=== PATIENT | male | born 1975 | race Caucasian/White ===

== ENCOUNTER 2020-07-27 14:06 | Emergency (ER) | payer MEDICAID ==
[2020-07-27] MEDS ORDERED: Albuterol 0.083% 2.5 MG/3 ML Neb Soln NEB ONE (14:58)
[2020-07-27] MEDS ORDERED: Diphtheria,Pertussis(Acell),Tetanus Vaccine 0.5 ML Syringe IM ONE (15:45)
[2020-07-27] MEDS ORDERED: Diphtheria/Tetanus Toxoids,Adult (Td) 0.5 ML Syringe ONE (16:06)
[2020-07-27] MEDS ORDERED: Diphtheria,Pertussis(Acell),Tetanus Vaccine 0.5 ML Syringe ONE (16:07)
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
--- NOTE | 2020-07-28 06:43 | CR ---
Chest: 2 views of the chest were obtained. Comparison: No previous chest imaging is available. Symmetric nodules are seen within both lower lungs which appear symmetric between right and left sides. Findings are most likely due to nipple densities. Lungs otherwise are clear. No acute parenchymal change is seen. Heart size and mediastinum are normal. No acute osseous abnormality is appreciated. Impression: 1. Probable nipple densities. 2. Nothing acute is otherwise seen on 2 view chest x-ray. Diagnostic code #2
== END 2020-07-27 16:25 | disposition home or self-care (01) ==
LOC: JD.ED 14:06
DX: J45.909 Unspecified asthma, uncomplicated (principal); E78.00 Pure hypercholesterolemia, unspecified; I10 Essential (primary) hypertension; K21.9 Gastro-esophageal reflux disease without esophagitis; E11.9 Type 2 diabetes mellitus without complications; E03.9 Hypothyroidism, unspecified; G40.909 Epilepsy, unspecified, not intractable, without status epilepticus; Z23 Encounter for immunization; Z88.1 Allergy status to other antibiotic agents; Z88.8 Allergy status to other drugs, medicaments and biological substances; Z79.4 Long term (current) use of insulin; Z79.899 Other long term (current) drug therapy; Z87.891 Personal history of nicotine dependence
CPT/HCPCS: 71046; 71046-26; 90471; 90715; 94640; 99283; 99285-25

== ENCOUNTER 2020-08-11 17:03 | Emergency (ER) | payer MEDICAID ==
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
--- NOTE | 2020-08-11 18:31 | CR ---
Right shoulder: 3 views of the right shoulder were obtained. Comparison: No prior study is available. Acromioclavicular and glenohumeral joints appear within normal limits. No acute fracture, dislocation or other bony abnormality is appreciated. No abnormal soft tissue calcifications are seen. Impression: 1. No abnormality is appreciated on right shoulder study. Diagnostic code #1
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
== END 2020-08-11 18:49 | disposition home or self-care (01) ==
LOC: JD.ED 17:03
DX: M75.52 Bursitis of left shoulder (principal); M75.51 Bursitis of right shoulder; E78.00 Pure hypercholesterolemia, unspecified; I10 Essential (primary) hypertension; K21.9 Gastro-esophageal reflux disease without esophagitis; E11.9 Type 2 diabetes mellitus without complications; E03.9 Hypothyroidism, unspecified; Z86.16 Personal history of COVID-19; Z88.1 Allergy status to other antibiotic agents; Z88.8 Allergy status to other drugs, medicaments and biological substances
CPT/HCPCS: 73030-26-LT; 73030-26-RT; 73030-LT; 73030-RT; 99283

== ENCOUNTER 2020-08-15 16:52 | Emergency (ER) | payer MEDICAID ==
--- NOTE | 2020-08-15 17:35 | EDM.PDOC ---
ED HPI GENERAL MEDICAL PROBLEM - General Chief Complaint: Upper Extremity Injury/Pain Stated Complaint: SHOULDER PAIN Time Seen by Provider: 08/15/20 17:09 Source of Information: Reports: Patient History Limitations: Reports: No Limitations - History of Present Illness INITIAL COMMENTS - FREE TEXT/NARRATIVE: 45-year-old male presents to the emergency department today with complaints of bilateral shoulder pain requesting refill of his narcotic pain medication. The patient was prescribed 20 Percocet 2 days ago and was instructed to take 1 medication at bedtime as needed. He states today that he is out of his medications and that he has chronic pain to his bilateral shoulders. Patient denies any history of fever, chills, nausea, vomiting or diarrhea. He denies cough or shortness of breath. Left Shoulder Pain Score (Numeric/FACES): 5 - Related Data Allergies Allergy/AdvReac Type Severity Reaction Status Date / Time varenicline [From Chantix] Allergy Other Verified 08/15/20 17:11 sulfamethoxazole AdvReac Sweating Verified 08/15/20 17:11 [From Bactrim] trimethoprim [From Bactrim] AdvReac Sweating Verified 08/15/20 17:11 Home Meds: Home Meds Albuterol Sulfate [Albuterol Sulfate HFA] 8.5 gm INH Q2H PRN #1 inhaler 07/27/20 [Rx] Citalopram Hydrobromide [Celexa] 20 mg PO DAILY 07/27/20 [History] Codeine/Promethazine [Phenergan with Codeine] 5 ml PO ASDIRECTED 07/27/20 [History] Cyclobenzaprine [Flexeril] 5 mg PO TID PRN 07/27/20 [History] Dicyclomine [Bentyl] 20 mg PO DAILY 07/27/20 [History] Insulin Aspart [NovoLOG] 18 units SUBCUT TID 07/27/20 [History] Insulin Glargine,Hum.Rec.Anlog [Lantus Solostar] 51 unit SQ BEDTIME 07/27/20 [History] Levothyroxine Sodium [Levothyroxine] 300 mcg PO DAILY 07/27/20 [History] Metoclopramide HCl [Reglan] 10 mg PO DAILY 07/27/20 [History] Omeprazole 40 mg PO DAILY 07/27/20 [History] Pregabalin [Lyrica] 200 mg PO DAILY 07/27/20 [History] Rosuvastatin [Crestor] 10 mg PO DAILY 07/27/20 [History] Topiramate [Topamax] 200 mg PO DAILY 07/27/20 [History] cloNIDine [Catapres] 0.1 mg PO DAILY 07/27/20 [History] metFORMIN [Glucophage] 1,000 mg PO BIDMEALS 07/27/20 [History] ondansetron HCL [Zofran] 4 mg SL TID PRN 07/27/20 [History] predniSONE [Prednisone] 20 mg PO DAILY #5 tablet 07/27/20 [Rx] Ondansetron [Zofran] 4 mg BUCCAL Q6H PRN #12 tab 08/11/20 [Rx] oxyCODONE HCl/Acetaminophen [Percocet 5-325 mg Tablet] 1 - 2 each PO Q4H PRN #20 tablet 08/11/20 [Rx] Past Medical History HEENT History: Reports: None Cardiovascular History: Reports: High Cholesterol, Hypertension Respiratory History: Reports: Asthma, Bronchitis, Recurrent Gastrointestinal History: Reports: GERD Genitourinary History: Reports: Renal Calculus Musculoskeletal History: Reports: Other (See Below) Other Musculoskeletal History: chronic shoulder pain 5 shoulder surgeries Neurological History: Reports: Seizure Other Neuro History: states has epilepsy 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 Psychiatric History: Reports: Anxiety, Depression Endocrine/Metabolic History: Reports: Diabetes, Type II, Hypothyroidism Hematologic History: Reports: None Immunologic History: Reports: None Oncologic (Cancer) History: Reports: None Dermatologic History: Reports: None - Infectious Disease History Infectious Disease History: Reports: Chicken Pox, Novel Coronavirus Other Infectious Disease History: Feb 2020 - Past Surgical History Head Surgeries/Procedures: Reports: None HEENT Surgical History: Reports: Oral Surgery GI Surgical History: Reports: Appendectomy, Cholecystectomy Musculoskeletal Surgical History: Reports: Shoulder Surgery Social & Family History - Family History Family Medical History: No Pertinent Family History - Tobacco Use Tobacco Use Status *Q: Former Tobacco User Used Tobacco, but Quit: Yes Month/Year Tobacco Last Used: 1 year ago - Caffeine Use Caffeine Use: Reports: Coffee, Soda, Tea - Recreational Drug Use Recreational Drug Use: No - Living Situation & Occupation Living situation: Reports: Occupation: Unemployed Review of Systems - Review of Systems Review Of Systems: Comprehensive ROS is negative, except as noted in HPI. ED EXAM, GENERAL - Physical Exam Exam: See Below Exam Limited By: No Limitations General Appearance: Alert, WD/WN, No Apparent Distress Ears: Normal External Exam, Hearing Grossly Normal Nose: Normal Inspection Throat/Mouth: Normal Inspection, Normal Lips, Normal Voice, No Airway Compromise Head: Atraumatic Neck: Normal Inspection, Supple Respiratory/Chest: No Respiratory Distress, No Accessory Muscle Use Cardiovascular: Normal Peripheral Pulses, Regular Rate, Rhythm GI/Abdominal: No Distention (Male) Exam: Deferred Rectal (Males) Exam: Deferred Back Exam: Normal Inspection Extremities: Normal Inspection, Normal Range of Motion, Non-Tender, Normal Capillary Refill Neurological: Alert, Oriented, Normal Cognition Psychiatric: Normal Affect, Normal Mood Skin Exam: Warm, Dry, Intact, Normal Color, No Rash Lymphatic: No Adenopathy Course - Vital Signs Text/Narrative:: Patient presents with drug-seeking type behavior. Was prescribed Percocet 20 tabs 2 days ago and instructed to take 1 at bedtime as needed for discomfort however he states that he has used all these up in 2 days. I will not refill his prescription for Percocet. I did have a discussion with him regarding the fact that he has misused these meds and not taking them as prescribed and that the ER is not the appropriate location to manage his chronic pain. He has been in town for quite some time now and the last time I did see him I recommended he find a primary care physician to manage his pain and he was given a list of our local providers. He has not done this. I will not refill his narcotic pain medication today. Last Recorded V/S: Last Vital Signs Temp 97.1 F 08/15/20 17:08 Pulse 68 08/15/20 17:08 Resp 16 08/15/20 17:08 BP 148/93 H 08/15/20 17:08 Pulse Ox 98 08/15/20 17:08 Departure - Departure Time of Disposition: 17:32 Disposition: Home, Self-Care 01 Condition: Good Clinical Impression: Drug-seeking behavior Shoulder pain, bilateral Qualifiers: Chronicity: chronic Qualified Code(s): M25.511 - Pain in right shoulder - Discharge Information Instructions: Shoulder Pain, [id number] Referrals: PCP,None [Primary Care Provider] - Forms: ED Department Discharge Additional Instructions: You were seen in the ED today with complaints of bilateral shoulder pain. You were given a prescription for 20 percocet 4 days ago and advised to only take one or two at bedtime. We do not manage chronic pain in the emergency department. You will need to follow up with your primary care physician to manage your pain. Sepsis Event Note (ED) - Evaluation Sepsis Screening Result: No Definite Risk
== END 2020-08-15 18:03 | disposition home or self-care (01) ==
LOC: JD.ED 16:52
DX: M25.511 Pain in right shoulder (principal); M25.512 Pain in left shoulder; E78.00 Pure hypercholesterolemia, unspecified; I10 Essential (primary) hypertension; K21.9 Gastro-esophageal reflux disease without esophagitis; E11.9 Type 2 diabetes mellitus without complications; E03.9 Hypothyroidism, unspecified; Z86.16 Personal history of COVID-19; Z79.4 Long term (current) use of insulin; Z79.899 Other long term (current) drug therapy; Z88.8 Allergy status to other drugs, medicaments and biological substances; Z88.1 Allergy status to other antibiotic agents; Z76.5 Malingerer [conscious simulation]; Z87.891 Personal history of nicotine dependence
CPT/HCPCS: 99283

== ENCOUNTER 2020-09-15 12:12 | Emergency (ER) | payer MEDICAID ==
--- NOTE | 2020-09-15 15:15 | EDM.PDOC ---
ED HPI GENERAL MEDICAL PROBLEM - General Chief Complaint: Upper Extremity Injury/Pain Stated Complaint: SWOLLEN RT HAND Time Seen by Provider: 09/15/20 13:29 Source of Information: Reports: Patient History Limitations: Reports: No Limitations - History of Present Illness INITIAL COMMENTS - FREE TEXT/NARRATIVE: Patient is a 45-year-old male presenting to the emergency department with complaints of pain and swelling to his right hand. He reports 1 week ago he did fall and caught himself using his hands, so is unsure if he may have injured it then. He has been using Tylenol and ibuprofen as needed for discomfort. He has been working with diabetic education to get his insulin stabilized and also has a appointment with Neetu Boswell NP to establish care. Right Hand Pain Score (Numeric/FACES): 8 - Related Data Allergies Allergy/AdvReac Type Severity Reaction Status Date / Time varenicline [From Chantix] Allergy Other Verified 08/15/20 17:11 sulfamethoxazole AdvReac Sweating Verified 08/15/20 17:11 [From Bactrim] trimethoprim [From Bactrim] AdvReac Sweating Verified 08/15/20 17:11 Home Meds: Home Meds Albuterol Sulfate [Albuterol Sulfate HFA] 8.5 gm INH Q2H PRN #1 inhaler 07/27/20 [Rx] Citalopram Hydrobromide [Celexa] 20 mg PO DAILY 07/27/20 [History] Codeine/Promethazine [Phenergan with Codeine] 5 ml PO ASDIRECTED 07/27/20 [History] Cyclobenzaprine [Flexeril] 5 mg PO TID PRN 07/27/20 [History] Dicyclomine [Bentyl] 20 mg PO DAILY 07/27/20 [History] Insulin Aspart [NovoLOG] 18 units SUBCUT TID 07/27/20 [History] Insulin Glargine,Hum.Rec.Anlog [Lantus Solostar] 51 unit SQ BEDTIME 07/27/20 [History] Levothyroxine Sodium [Levothyroxine] 300 mcg PO DAILY 07/27/20 [History] Metoclopramide HCl [Reglan] 10 mg PO DAILY 07/27/20 [History] Omeprazole 40 mg PO DAILY 07/27/20 [History] Pregabalin [Lyrica] 200 mg PO DAILY 07/27/20 [History] Rosuvastatin [Crestor] 10 mg PO DAILY 07/27/20 [History] Topiramate [Topamax] 200 mg PO DAILY 07/27/20 [History] cloNIDine [Catapres] 0.1 mg PO DAILY 07/27/20 [History] metFORMIN [Glucophage] 1,000 mg PO BIDMEALS 07/27/20 [History] ondansetron HCL [Zofran] 4 mg SL TID PRN 07/27/20 [History] predniSONE [Prednisone] 20 mg PO DAILY #5 tablet 07/27/20 [Rx] Ondansetron [Zofran] 4 mg BUCCAL Q6H PRN #12 tab 08/11/20 [Rx] oxyCODONE HCl/Acetaminophen [Percocet 5-325 mg Tablet] 1 - 2 each PO Q4H PRN #20 tablet 08/11/20 [Rx] Naproxen [Naprosyn] 500 mg PO Q12HR 5 Days #10 tab 09/15/20 [Rx] Past Medical History HEENT History: Reports: None Cardiovascular History: Reports: High Cholesterol, Hypertension Respiratory History: Reports: Asthma, Bronchitis, Recurrent Gastrointestinal History: Reports: GERD Genitourinary History: Reports: Renal Calculus Musculoskeletal History: Reports: Other (See Below) Other Musculoskeletal History: chronic shoulder pain 5 shoulder surgeries Neurological History: Reports: Seizure Other Neuro History: states has epilepsy 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 Psychiatric History: Reports: Anxiety, Depression Endocrine/Metabolic History: Reports: Diabetes, Type II, Hypothyroidism Hematologic History: Reports: None Immunologic History: Reports: None Oncologic (Cancer) History: Reports: None Dermatologic History: Reports: None - Infectious Disease History Infectious Disease History: Reports: Chicken Pox, Novel Coronavirus Other Infectious Disease History: Feb 2020 - Past Surgical History Head Surgeries/Procedures: Reports: None HEENT Surgical History: Reports: Oral Surgery GI Surgical History: Reports: Appendectomy, Cholecystectomy Musculoskeletal Surgical History: Reports: Shoulder Surgery Social & Family History - Family History Family Medical History: No Pertinent Family History - Tobacco Use Tobacco Use Status *Q: Current Every Day Tobacco User Years of Tobacco use: 14 Packs/Tins Daily: 1 - Caffeine Use Caffeine Use: Reports: Coffee, Soda Other Caffeine Use: drinks diet mt dew - Recreational Drug Use Recreational Drug Use: Yes Recreational Drug Type: Reports: Marijuana/Hashish Other Recreational Drug Type: rital priscila - Living Situation & Occupation Living situation: Reports: Occupation: Unemployed Review of Systems - Review of Systems Review Of Systems: Comprehensive ROS is negative, except as noted in HPI. ED EXAM, GENERAL - Physical Exam Exam: See Below Exam Limited By: No Limitations General Appearance: Alert, WD/WN, No Apparent Distress Respiratory/Chest: No Respiratory Distress, Lungs Clear, Normal Breath Sounds, No Accessory Muscle Use, Chest Non-Tender Cardiovascular: Normal Peripheral Pulses, Regular Rate, Rhythm, No Edema, No Gallop, No JVD, No Murmur, No Rub Extremities: Other (Area minimal swelling to the right hand between the first and second fingers. No redness or warmth.) Neurological: Alert, Oriented, CN II-XII Intact, Normal Cognition, Normal Gait, Normal Reflexes, No Motor/Sensory Deficits Psychiatric: Normal Affect, Normal Mood Skin Exam: Warm, Dry, Intact, Normal Color, No Rash Course - Vital Signs Last Recorded V/S: Last Vital Signs Temp 96.9 F 09/15/20 12:20 Pulse 74 09/15/20 12:20 Resp 20 09/15/20 12:20 BP 145/94 H 09/15/20 12:20 Pulse Ox 95 09/15/20 12:20 - Orders/Labs/Meds Orders: Active Orders 24 hr Category Date Time Status Hand Comp Min 3V Rt [CR] Stat Exams 09/15/20 13:32 Taken DME for Discharge [COMM] Routine Oth 09/15/20 14:47 Ordered - Re-Assessments/Exams Free Text/Narrative Re-Assessment/Exam: 45-year-old male presenting to the emergency department with complaints of pain to his right hand. He does report that a week ago he fell on some stairs and caught himself on his hand. He is not sure if he may have injured it then. On exam, patient has some very minimal swelling between the first and second fingers. There is no redness or warmth. Area is mildly tender to palpation. I suspect he is strained his hand, however I have ordered a x-ray of the right hand. 09/15/20 15:13 X-ray of the right hand shows no acute abnormalities. Patient will be provided a thumb spica splint to immobilize the joints and allow for healing. I will start him on Naprosyn for discomfort. Recommend follow-up with his primary care as scheduled. Departure - Departure Time of Disposition: 15:14 Disposition: Home, Self-Care 01 Condition: Good Clinical Impression: Hand strain Qualifiers: Encounter type: initial encounter Laterality: right Qualified Code(s): S66.911A - Strain of unspecified muscle, fascia and tendon at wrist and hand level, right hand, initial encounter - Discharge Information Prescriptions: Naproxen [Naprosyn] 500 mg PO Q12HR 5 Days #10 tab Referrals: Rae Boswell NP [Primary Care Provider] - Forms: ED Department Discharge Additional Instructions: You were seen in the emergency department today for evaluation of pain and mild swelling to your right hand. X-rays are completed and found to be normal. As we discussed, you have likely strained your hand. You have been provided with a brace. Recommend wearing this for the next 4 to 5 days to allow healing. You have been provided Naprosyn. Take this medication as prescribed. If you find that it is upsetting her stomach, you may stop it and change to Tylenol. Follow-up with your primary care provider at your appointment as scheduled. Return to ER as needed. Sepsis Event Note (ED) - Evaluation Sepsis Screening Result: No Definite Risk - Focused Exam Vital Signs: Vital Signs Temp Pulse Resp BP Pulse Ox 09/15/20 12:20 96.9 F 74 20 145/94 H 95 - My Orders Last 24 Hours: My Active Orders 09/15/20 13:32 Hand Comp Min 3V Rt [CR] Stat 09/15/20 14:47 DME for Discharge [COMM] Routine - Assessment/Plan Last 24 Hours: My Active Orders 09/15/20 13:32 Hand Comp Min 3V Rt [CR] Stat 09/15/20 14:47 DME for Discharge [COMM] Routine
--- NOTE | 2020-09-15 16:08 | CR ---
Right hand: 4 views of the right hand were obtained. Comparison: No prior hand exam is available. Joint spaces are fairly well preserved. Small bone islands are noted within the navicular bone as well as within the distal proximal phalanx of the fourth finger. No acute fracture, dislocation or other bony abnormality is appreciated. Impression: 1. Incidental findings. 2. Nothing acute is seen on right hand exam. Diagnostic code #2
== END 2020-09-15 15:36 | disposition home or self-care (01) ==
LOC: SUPCPDRO 12:12 → JD.ED 12:12
DX: S66.911A Strain of unspecified muscle, fascia and tendon at wrist and hand level, right hand, initial encounter (principal); E11.40 Type 2 diabetes mellitus with diabetic neuropathy, unspecified; E78.00 Pure hypercholesterolemia, unspecified; I10 Essential (primary) hypertension; K21.9 Gastro-esophageal reflux disease without esophagitis; E03.9 Hypothyroidism, unspecified; Z79.4 Long term (current) use of insulin; Z79.899 Other long term (current) drug therapy; Z72.0 Tobacco use; Z88.1 Allergy status to other antibiotic agents; Z88.8 Allergy status to other drugs, medicaments and biological substances; W18.39XA Other fall on same level, initial encounter
CPT/HCPCS: 73130-26-RT; 73130-RT; 99283-25

== ENCOUNTER 2020-10-17 14:41 | Emergency (ER) | payer MEDICAID | END 2020-10-17 15:50 | disposition left against medical advice (07) | LOC: JD.ED 14:41 | DX: Z53.21 Procedure and treatment not carried out due to patient leaving prior to being seen by health care provider (principal) | CPT/HCPCS: 82947 ==

== ENCOUNTER 2020-12-04 17:21 | Emergency (ER) | payer MEDICAID | END 2020-12-04 18:30 | LOC: JD.ED 17:21 | DX: Z53.21 Procedure and treatment not carried out due to patient leaving prior to being seen by health care provider (principal) ==

== ENCOUNTER 2021-06-09 14:57 | Emergency (ER) | payer MEDICAID | END 2021-06-09 16:33 | disposition home or self-care (01) | LOC: JD.ED 14:57 | DX: G89.4 Chronic pain syndrome (principal); M25.552 Pain in left hip; E11.42 Type 2 diabetes mellitus with diabetic polyneuropathy; E78.00 Pure hypercholesterolemia, unspecified; I10 Essential (primary) hypertension; K21.9 Gastro-esophageal reflux disease without esophagitis; E03.9 Hypothyroidism, unspecified; E66.9 Obesity, unspecified; Z86.16 Personal history of COVID-19; Z88.1 Allergy status to other antibiotic agents; Z88.8 Allergy status to other drugs, medicaments and biological substances; Z79.4 Long term (current) use of insulin; Z79.899 Other long term (current) drug therapy; Z72.0 Tobacco use; Z68.34 Body mass index [BMI] 34.0-34.9, adult | CPT/HCPCS: 99283; 99284 ==

== ENCOUNTER 2021-08-06 00:07 | Emergency (ER) | payer MEDICAID | END 2021-08-06 01:35 | disposition home or self-care (01) | LOC: JD.ED 00:07 | DX: E11.40 Type 2 diabetes mellitus with diabetic neuropathy, unspecified (principal); I10 Essential (primary) hypertension; E03.9 Hypothyroidism, unspecified; E66.9 Obesity, unspecified; Z68.34 Body mass index [BMI] 34.0-34.9, adult; Z86.16 Personal history of COVID-19; Z88.8 Allergy status to other drugs, medicaments and biological substances; Z88.2 Allergy status to sulfonamides; Z87.891 Personal history of nicotine dependence; Z90.49 Acquired absence of other specified parts of digestive tract | CPT/HCPCS: 99283; 99284 ==

== ENCOUNTER 2021-08-11 15:30 | Emergency (ER) | payer MEDICAID ==
[2021-08-11] MEDS ORDERED: Ondansetron 4 MG/2 ML SDV IVPUSH ONE (16:53)
[2021-08-11] MEDS ORDERED: Sodium Chloride 0.9% 1,000 ML IV STA (16:53)
[2021-08-11] MEDS ORDERED: HYDROmorphone 0.5 MG/0.5 ML Syringe IVPUSH ONE (16:54)
[2021-08-11] MEDS: Sodium Chloride 0.9% 10 ML Syringe FLUSH PRN ×2 (17:17→18:17)
[2021-08-11] MEDS ORDERED: Iopamidol 612 MG/ML 50 ML SDV IVPUSH ONE (18:01)
[2021-08-11] MEDS ORDERED: Iopamidol 612 MG/ML 100 ML Bottle IVPUSH ONE (18:01)
== END 2021-08-11 19:40 | disposition home or self-care (01) ==
LOC: JD.ED 15:30
DX: R10.11 Right upper quadrant pain (principal); R11.2 Nausea with vomiting, unspecified; E78.00 Pure hypercholesterolemia, unspecified; I10 Essential (primary) hypertension; K21.9 Gastro-esophageal reflux disease without esophagitis; E11.9 Type 2 diabetes mellitus without complications; E03.9 Hypothyroidism, unspecified; E66.9 Obesity, unspecified; Z68.34 Body mass index [BMI] 34.0-34.9, adult; Z88.1 Allergy status to other antibiotic agents; Z88.8 Allergy status to other drugs, medicaments and biological substances; Z79.4 Long term (current) use of insulin; Z79.899 Other long term (current) drug therapy; Z86.16 Personal history of COVID-19
CPT/HCPCS: 36415; 74177; 80053; 81001; 83690; 84443; 85025; 96361; 96374; 96375; 99284; J1170; J2405; J3490; J7030; Q9967

== ENCOUNTER 2021-10-20 13:09 | Emergency (ER) | payer MEDICAID | END 2021-10-20 16:29 | disposition home or self-care (01) | LOC: JD.ED 13:09 | DX: M62.81 Muscle weakness (generalized) (principal); J45.909 Unspecified asthma, uncomplicated; K21.9 Gastro-esophageal reflux disease without esophagitis; I10 Essential (primary) hypertension; E66.9 Obesity, unspecified; Z68.34 Body mass index [BMI] 34.0-34.9, adult; Z86.16 Personal history of COVID-19; Z90.49 Acquired absence of other specified parts of digestive tract; Z88.8 Allergy status to other drugs, medicaments and biological substances; Z88.2 Allergy status to sulfonamides; Z79.4 Long term (current) use of insulin | CPT/HCPCS: 72131; 72131-26; 99283 ==

== ENCOUNTER 2021-11-06 02:13 | Emergency (ER) | payer MEDICAID ==
[2021-11-06] MEDS ORDERED: Ibuprofen 600 MG Tab PO ONE (03:17)
[2021-11-06] MEDS ORDERED: HYDROmorphone 1 MG/ML Syringe IM ONE (03:17)
== END 2021-11-06 03:35 | disposition home or self-care (01) ==
LOC: JD.ED 02:13
DX: G89.18 Other acute postprocedural pain (principal); M79.675 Pain in left toe(s); E78.00 Pure hypercholesterolemia, unspecified; I10 Essential (primary) hypertension; K21.9 Gastro-esophageal reflux disease without esophagitis; E11.9 Type 2 diabetes mellitus without complications; E03.9 Hypothyroidism, unspecified; F17.210 Nicotine dependence, cigarettes, uncomplicated; E66.9 Obesity, unspecified; Z68.33 Body mass index [BMI] 33.0-33.9, adult; Z88.1 Allergy status to other antibiotic agents; Z88.8 Allergy status to other drugs, medicaments and biological substances; Z79.4 Long term (current) use of insulin; Z79.899 Other long term (current) drug therapy; Z86.16 Personal history of COVID-19
CPT/HCPCS: 96372; 99283; A9270; J1170

== ENCOUNTER 2022-06-11 10:13 | Emergency (ER) | payer MEDICAID ==
[2022-06-11] MEDS ORDERED: Sodium Chloride 0.9% 10 ML Syringe FLUSH PRN (10:41)
[2022-06-11] MEDS ORDERED: Iopamidol 612 MG/ML 100 ML Bottle IVPUSH ONE (11:16)
[2022-06-11] MEDS ORDERED: Sodium Chloride 0.9% 10 ML Syringe FLUSH ONE (11:16)
[2022-06-11 12:20] LABS: ESTIMATED GFR 84 mL/min (>60)
== END 2022-06-11 12:45 | disposition home or self-care (01) ==
LOC: JD.ED 10:13
DX: R10.31 Right lower quadrant pain (principal); I10 Essential (primary) hypertension; J45.909 Unspecified asthma, uncomplicated; K21.9 Gastro-esophageal reflux disease without esophagitis; E11.40 Type 2 diabetes mellitus with diabetic neuropathy, unspecified; E03.9 Hypothyroidism, unspecified; E66.9 Obesity, unspecified; Z68.35 Body mass index [BMI] 35.0-35.9, adult; Z88.8 Allergy status to other drugs, medicaments and biological substances; Z88.5 Allergy status to narcotic agent; Z88.2 Allergy status to sulfonamides; Z79.4 Long term (current) use of insulin; Z79.899 Other long term (current) drug therapy
CPT/HCPCS: 36415; 74177; 80053; 81001; 83690; 83735; 85025; 86140; 99284; J3490; Q9967

== ENCOUNTER 2023-03-16 19:49 | Emergency (ER) | payer MEDICAID ==
[2023-03-16 20:41] LABS: BASOPHILS ABSOLUTE AUTO 0.1 K/mm3 (0.0-0.2); BASOPHILS PERCENT AUTO 0.9 % (0.0-1.0); EOSINOPHILS ABSOLUTE AUTO 0.2 K/mm3 (0.0-0.4); EOSINOPHILS PERCENT AUTO 3.4 % (0.0-6.0); HEMATOCRIT 42.4 % (42.0-52.0); HEMOGLOBIN 15.4 gm/dl (14.0-18.0); IMMATURE GRAN ABSOLUTE AUTO 0.01 K/mm3 (0.00-0.05); IMMATURE GRAN PERCENT AUTO 0.1 % (0.0-0.4); LYMPHOCYTES ABSOLUTE AUTO 1.8 K/mm3 (1.0-4.8); LYMPHOCYTES PERCENT AUTO 26.9 % (24.0-44.0); MEAN CORPUSCULAR HEMOGLOBIN 29.9 pg (28.0-32.0); MEAN CORPUSCULAR HGB CONC 36.3 g/dl (32.0-36.0); MEAN CORPUSCULAR VOLUME 82.3 fl (83.0-99.0); MEAN PLATELET VOLUME 9.2 fl (9.4-12.4); MONOCYTES ABSOLUTE AUTO 0.5 K/mm3 (0.0-0.8); NEUTROPHILS ABSOLUTE AUTO 4.1 K/mm3 (1.8-7.7); NEUTROPHILS PERCENT AUTO 61.7 % (41.0-71.0); PLATELET COUNT,PLT 208 K/mm3 (150-400); RED BLOOD CELL COUNT 5.15 M/mm3 (4.52-5.90); WHITE BLOOD CELL COUNT,WBC 6.68 K/mm3 (3.9-11.3)
[2023-03-16 21:02] LABS: A/G RATIO 1.3 (1-2); ALBUMIN 3.9 g/dl (3.4-5.0); ANION GAP 10.7 (5-15); BILIRUBIN TOTAL 1.4 mg/dL (0.2-1.0); BUN/CREATININE RATIO 11.4 (14-18); CALCIUM 8.8 mg/dL (8.5-10.1); CREATININE 1.4 mg/dL (0.7-1.3); EST CRCL DRUG DOSING (CG) 75.84 mL/min; POTASSIUM,K 3.7 mEq/L (3.5-5.1); PROTEIN TOTAL,TP 6.9 g/dl (6.4-8.2)
== END 2023-03-16 21:30 | disposition home or self-care (01) ==
LOC: JD.ED 19:49
DX: M54.2 Cervicalgia (principal); R53.1 Weakness; J45.909 Unspecified asthma, uncomplicated; K21.9 Gastro-esophageal reflux disease without esophagitis; E11.40 Type 2 diabetes mellitus with diabetic neuropathy, unspecified; Z79.4 Long term (current) use of insulin; Z86.16 Personal history of COVID-19; Z88.0 Allergy status to penicillin; Z88.2 Allergy status to sulfonamides; Z88.5 Allergy status to narcotic agent; Z79.899 Other long term (current) drug therapy
CPT/HCPCS: 36415; 70450; 70450-26; 72125; 72125-26; 80053; 83735; 85025; 99284

== ENCOUNTER 2023-06-03 18:43 | Emergency (ER) | payer MEDICAID ==
[2023-06-03] MEDS ORDERED: Sodium Chloride 0.9% 10 ML Syringe FLUSH PRN (19:10)
[2023-06-03] MEDS: Diclofenac Sodium 1% Gel 100 GM Tube TOP ONE (19:19)
[2023-06-03 19:54] LABS: BASOPHILS ABSOLUTE AUTO 0.1 K/mm3 (0.0-0.2); BASOPHILS PERCENT AUTO 0.8 % (0.0-1.0); EOSINOPHILS ABSOLUTE AUTO 0.1 K/mm3 (0.0-0.4); EOSINOPHILS PERCENT AUTO 1.7 % (0.0-6.0); HEMATOCRIT 41.3 % (42.0-52.0); HEMOGLOBIN 14.9 gm/dl (14.0-18.0); IMMATURE GRAN ABSOLUTE AUTO 0.03 K/mm3 (0.00-0.05); IMMATURE GRAN PERCENT AUTO 0.4 % (0.0-0.4); LYMPHOCYTES ABSOLUTE AUTO 1.7 K/mm3 (1.0-4.8); LYMPHOCYTES PERCENT AUTO 20.8 % (24.0-44.0); MEAN CORPUSCULAR HEMOGLOBIN 28.9 pg (28.0-32.0); MEAN CORPUSCULAR HGB CONC 36.1 g/dl (32.0-36.0); MEAN PLATELET VOLUME 9.2 fl (9.4-12.4); MONOCYTES ABSOLUTE AUTO 0.7 K/mm3 (0.0-0.8); MONOCYTES PERCENT AUTO 8.1 % (0.0-8.0); NEUTROPHILS ABSOLUTE AUTO 5.6 K/mm3 (1.8-7.7); NEUTROPHILS PERCENT AUTO 68.2 % (41.0-71.0); PLATELET COUNT,PLT 241 K/mm3 (150-400); RED BLOOD CELL COUNT 5.16 M/mm3 (4.52-5.90); WHITE BLOOD CELL COUNT,WBC 8.25 K/mm3 (3.9-11.3)
[2023-06-03 20:17] LABS: A/G RATIO 1.5 (1-2); ALBUMIN 4.2 g/dl (3.4-5.0); ANION GAP 15.9 (5-15); BILIRUBIN TOTAL 1.6 mg/dL (0.2-1.0); BUN/CREATININE RATIO 12.7 (14-18); C-REACTIVE PROTEIN 0.28 mg/dL (<0.30); CALCIUM 9.1 mg/dL (8.5-10.1); CREATININE 1.1 mg/dL (0.7-1.3); EST CRCL DRUG DOSING (CG) 96.52 mL/min; MAGNESIUM 1.9 mg/dL (1.8-2.4); POTASSIUM,K 3.9 mEq/L (3.5-5.1); PROTEIN TOTAL,TP 7.1 g/dl (6.4-8.2)
== END 2023-06-03 21:00 | disposition home or self-care (01) ==
LOC: JD.ED 18:43
DX: M94.0 Chondrocostal junction syndrome [Tietze] (principal); I10 Essential (primary) hypertension; E78.00 Pure hypercholesterolemia, unspecified; J45.909 Unspecified asthma, uncomplicated; K21.9 Gastro-esophageal reflux disease without esophagitis; F17.210 Nicotine dependence, cigarettes, uncomplicated; Z79.899 Other long term (current) drug therapy; Z86.16 Personal history of COVID-19; Z90.49 Acquired absence of other specified parts of digestive tract; Z79.4 Long term (current) use of insulin; Z88.2 Allergy status to sulfonamides; Z88.5 Allergy status to narcotic agent; Z88.8 Allergy status to other drugs, medicaments and biological substances
CPT/HCPCS: 36415; 71046; 80053; 83735; 84484; 85025; 86140; 93005; 99285; A9270; 93010; 99283

== ENCOUNTER 2023-10-12 23:31 | Emergency (ER) | payer MEDICAID | END 2023-10-13 00:33 | disposition home or self-care (01) | LOC: JD.ED 23:31 | DX: S93.505A Unspecified sprain of left lesser toe(s), initial encounter (principal); I10 Essential (primary) hypertension; J45.909 Unspecified asthma, uncomplicated; K21.9 Gastro-esophageal reflux disease without esophagitis; E78.00 Pure hypercholesterolemia, unspecified; E66.9 Obesity, unspecified; E03.9 Hypothyroidism, unspecified; F17.210 Nicotine dependence, cigarettes, uncomplicated; Z68.33 Body mass index [BMI] 33.0-33.9, adult; Z88.2 Allergy status to sulfonamides; Z88.8 Allergy status to other drugs, medicaments and biological substances; Z79.4 Long term (current) use of insulin; Z79.890 Hormone replacement therapy; Z79.899 Other long term (current) drug therapy; Z86.16 Personal history of COVID-19; Z90.49 Acquired absence of other specified parts of digestive tract; W23.0XXA Caught, crushed, jammed, or pinched between moving objects, initial encounter | CPT/HCPCS: 73630-26-LT; 73630-LT; 99282; 99283 ==

== ENCOUNTER 2024-02-27 17:39 | Emergency (ER) | payer MEDICARE, MEDICAID ==
[2024-02-27] MEDS: Lidocaine 1% 10 ML MDV INJECT ONE (18:22)
== END 2024-02-27 18:53 | disposition home or self-care (01) ==
LOC: JD.ED 17:39
DX: S61.411A Laceration without foreign body of right hand, initial encounter (principal); I10 Essential (primary) hypertension; J45.909 Unspecified asthma, uncomplicated; K21.9 Gastro-esophageal reflux disease without esophagitis; E11.42 Type 2 diabetes mellitus with diabetic polyneuropathy; E03.9 Hypothyroidism, unspecified; E66.9 Obesity, unspecified; Z86.16 Personal history of COVID-19; Z90.49 Acquired absence of other specified parts of digestive tract; Z88.5 Allergy status to narcotic agent; Z88.8 Allergy status to other drugs, medicaments and biological substances; Z79.4 Long term (current) use of insulin; Z79.51 Long term (current) use of inhaled steroids; Z79.890 Hormone replacement therapy; Z79.899 Other long term (current) drug therapy; Z68.34 Body mass index [BMI] 34.0-34.9, adult
CPT/HCPCS: 12001; 99282; J3490